=== PATIENT | male | born 1975 | race Caucasian/White ===

== ENCOUNTER 2024-03-03 15:18 | Day surgery (SDC) | payer BC ==
[2024-03-03] VITALS (7 sets, daily range): BP systolic 118–130; BP diastolic 78–88; PULSE 47–59; TEMP 97.7–97.9
[~2024-03-03] VITALS: Ht 180.3 cm; Wt 89.7 kg
[2024-03-03] MEDS ORDERED: Ondansetron 4 MG/2 ML VIAL IV PRN ×2 (15:30→18:00)
[2024-03-03] MEDS ORDERED: LR 1,000 ML IV SCH (15:30)
[2024-03-03] MEDS ORDERED: fentaNYL 50 MCG/ML 2 ML VIAL IV PRN (15:30)
[2024-03-03] MEDS ORDERED: HYDROmorphone 2 MG/1 ML VIAL IV PRN (15:30)
[2024-03-03] MEDS ORDERED: hydrALAZINE 20 MG/ML 1 ML VIAL IV PRN (15:30)
--- NOTE | 2024-03-03 16:00 | NUR ---
Pt came in with (Daniella) by private vehicle from [facility]. Pt was admitted for Kidney stone removal. Pt changed into hospital gown. Pt is A&Ox4. VSS. S1S2. Clear lungs. ABD is rounded, soft, non-tender with audible bowel sounds. Palpable pulses in all extremities with normal strength. Pt has a 20G in L AC that was placed by [facility]. IV is patent and INT. Pt denies n/v, dizziness, headaches. Pt report minimal pain in L side but nothing compared to earlier. Pt and oriented to room and call light. No further needs at this time. Bed is in low position and call light in reach.
[2024-03-03] MEDS ORDERED: fentaNYL 50 MCG/ML 2 ML VIAL ONE (16:55)
[2024-03-03] MEDS ORDERED: dexAMETHasone 10 MG/ML VIAL ONE (16:56)
[2024-03-03] MEDS ORDERED: Lidocaine PF 2% (20 MG/ML) 5 ML VIAL ONE (16:56)
[2024-03-03] MEDS ORDERED: Ondansetron 4 MG/2 ML VIAL ONE (16:56)
[2024-03-03] MEDS ORDERED: NS 10 ML IV ONE (16:56)
[2024-03-03] MEDS ORDERED: Ketorolac 30 MG/ML VIAL ONE (16:56)
[2024-03-03] MEDS ORDERED: Glycopyrrolate 0.2 MG/ML 1 ML VIAL ONE (17:16)
[2024-03-03] MEDS ORDERED: Furosemide 40 MG/4 ML VIAL ONE (17:17)
--- NOTE | 2024-03-03 17:21 | NUR ---
Pt off floor for surgery.
[2024-03-03] MEDS ORDERED: Acetaminophen 325 MG TAB PO PRN (18:00)
[2024-03-03] MEDS ORDERED: Naloxone 0.4 MG/ML VIAL IV PRN (18:00)
[2024-03-03] MEDS ORDERED: Hyoscyamine 0.125 MG Sublingual TAB SL PRN (18:00)
[2024-03-03] MEDS ORDERED: Lidocaine 2% (20 MG/ML) 20 ML UROJET UR ONE ×2 (18:21→18:31)
[2024-03-03] MEDS ORDERED: Iohexol 350 - 100 ML VIAL URETER -L ONE (18:21)
--- NOTE | 2024-03-03 21:02 | NUR ---
THE DISCHARGE INSTRUCTIONS FOR THIS PATIENT WERE NOT FINALIZED. DR. CHIU WAS CONTACTED REGARDING THIS PROBLEM AND HE STATED THAT HE DID NOT KNOW HOW TO FIX IT. JORGE SANDOVALCONSULTATIVE SALES ASSOCIATE WAS CONTACTED AND SHE WAS WORKING ON THE PROBLEM BUT STILL WAS UNABLE TO GET THE INSTRUCTIONS TO PRINT. THE PATIENT CAME TO THE NURSES STATION AND STATED THAT HE NEEDED TO LEAVE NOW BECAUSE HE AND HIS SPOUSE NEEDED TO GET UP AT 4 AM TO GO TO IN THE MORNING AND THAT HE DID NOT CARE SO MUCH ABOUT THE INSTRUCTIONS OR SIGNING ANYTHING AT THIS TIME. THE PATIENT STATED THAT WE COULD EMAIL THEM TO HIM IF WE WANTED TO OR COULD AT [email or web address]. PRIOR TO THIS THE PATIENT'S PIV WAS REMOVED. VITAL SIGNS TAKEN. THE PATIENT ATE A COMPLETE DINNER. NO N/V NOTED. THE PATIENT DENIED PAIN OR DISCOMFORT. THE PATIENT HAD VOIDED 3 TIMES AND WAS AMBULATING ON HIS OWN WITHOUT DIFFICULTY AND WAS COMPLETELY ALERT AND ORIENTED. NO S/S OF PAIN, BLOOD, DIZZINESS OR WEAKNESS NOTED. THE PATIENT UNDERSTOOD THAT IF HE HAD COMPLICATIONS HE COULD ALWAYS RETURN TO THE ED OR CALL DR. CHIU OFFICE WITH QUESTIONS. THE DISCHARGE INSTRUCTIONS WERE SIGNED BY DR. CHIU BUT NOT FINALIZED AND THIS WAS THE DIFFICULTY WITH PRINTING. THE PATIENT LEFT AT 20:57.
--- NOTE | 2024-03-03 21:13 | NUR ---
DR. CHIU CONTACTED AT 20:30 REGARDING THE FINALIZATION OF THE DISCHARGE INSTRUCTIONS. THE DISCHARGE INSTRUCTIONS HAD BEEN SIGNED BUT NOT FINALIZED SO WE WERE UNABLE TO PRINT THEM. DR. CHIU STATED THAT HE DID NOT KNOW HOW TO FIX THIS PROBLEM SO JORGE SANDOVALSHIPPING ASSISTANT WAS CONTACTED AND WAS WORKING ON THE PROBLEM WHEN THE PATIENT WAS EAGERLY WANTING TO LEAVE. SEE OTHER DISCHARGE NOTE FOR FURTHER INFORMATION.
== END 2024-03-03 20:57 | disposition home or self-care (01) ==
LOC: SDCO 15:18 → SURG 15:18 → SDCO 20:57
DX: N20.1 Calculus of ureter (principal)
CPT/HCPCS: OP; C1769; J0690; J1100; J1885; J1940; J2405; J2704; J3010; Q9967